=== PATIENT | female | born 1995 | race Caucasian/White ===

== ENCOUNTER 2018-01-13 13:07 | Emergency (ER) | payer OTHER ==
[~2018-01-13] VITALS: Ht 160 cm; Wt 90.0 kg
[2018-01-13 13:15] VITALS: BP 123/86; PULSE 97; RESP 18; TEMP 98.2
[2018-01-13] MEDS ORDERED: SODIUM CHLOR 0.9% 1000 ML INJ 1,000 ML IV ONE ×2 (13:45→14:30)
--- NOTE | 2018-01-13 14:32 | PD ---
HPI . Vomiting and Chief Complaint: Related Problem Time Seen by Provider: 13:37 Travel History International Travel<30 days: No Contact w/Intl Traveler<30days: No Traveled to known affect area: No History of Present Illness HPI This patient presents claiming with hyperemesis. She states that she is 13 weeks . She states that she has had nausea and vomiting every single day with this . She has been seen by her rose grower who has prescribed Zofran. She is reluctant to take Zofran because of bad press. Symptoms are constant for the past couple of months. There have been no exacerbating or relieving factors. Symptoms are moderate. PFSH Past Medical History ?: LMP: 13 weks ago Social History Tobacco Use: No Allergies-Medications (Allergen,Severity, Reaction): Coded Allergies: No Known Allergies (Unverified , 01/13/18) Review of Systems Except as stated in HPI: all other systems reviewed are Neg Physical Exam Narrative GENERAL: Awake and alert and in no acute distress. SKIN: warm/dry. Normal color and turgor. HEAD: Normocephalic. Atraumatic. EYES: Pupils equal and round. No scleral icterus. No injection or drainage. ENT: No nasal bleeding or discharge. Mucous membranes pink and moist. NECK: Trachea midline. Full range of motion without pain.. CARDIOVASCULAR: Regular rate and rhythm. Heart sounds normal. Initial heart rate is 97. RESPIRATORY: No accessory muscle use. Clear to auscultation. Breath sounds equal bilaterally. GASTROINTESTINAL: Abdomen soft. Nontender. Bowel sounds present. Nondistended. MUSCULOSKELETAL: No obvious deformities. NEUROLOGICAL: Awake and alert. No obvious cranial nerve deficits. Motor grossly within normal limits. Normal speech. PSYCHIATRIC: Appropriate mood and affect; insight and judgment normal. Data Data Last Documented VS Vital Signs Date Time Temp Pulse Resp B/P (MAP) Pulse Ox O2 Delivery O2 Flow Rate FiO2 01/13/18 13:15 98.2 97 18 123/86 (98) Orders Orders Sodium Chlor 0.9% 1000 Ml Inj (Ns 1000 M (01/13/18 13:45) Sodium Chlor 0.9% 1000 Ml Inj (Ns 1000 M (01/13/18 14:30) MDM Medical Decision Making Medical Screen Exam Complete: Yes Emergency Medical Condition: Yes Differential Diagnosis Differential diagnosis includes but is not limited to viral gastritis, food poisoning, pancreatitis, pneumonia, hepatitis, acute coronary syndrome, pregnancyDifferential diagnosis includes but is not limited to viral gastritis, food poisoning, pancreatitis, pneumonia, hepatitis, acute coronary syndrome, Narrative Course This patient presents with vomiting associated with . I will treat her with IV fluids. The patient is now urinating. She will be discharged home. Diagnosis Primary Impression: Vomiting affecting Patient Instructions: General Instructions, Nausea and Vomiting in ( ED) Additional Instructions: Take the Zofran as needed to control nausea and vomiting. Disposition: 01 DISCHARGE HOME Condition: Stable America Parks MD Jan 13, 2018 14:32
== END 2018-01-13 16:19 | disposition home or self-care (01) ==
LOC: NEPD 13:07
DX: O21.9 Vomiting of pregnancy, unspecified (principal); Z3A.13 13 weeks gestation of pregnancy
CPT/HCPCS: 99282; J7030

== ENCOUNTER 2018-01-17 00:58 | Emergency (ER) | payer OTHER | END 2018-01-17 01:13 | disposition left against medical advice (07) | LOC: NED 00:58 | DX: O26.891 Other specified pregnancy related conditions, first trimester (principal); R52 Pain, unspecified; O21.9 Vomiting of pregnancy, unspecified; Z3A.13 13 weeks gestation of pregnancy; Z53.21 Procedure and treatment not carried out due to patient leaving prior to being seen by health care provider | CPT/HCPCS: 99281 ==

== ENCOUNTER 2018-09-08 16:08 | Inpatient (IN) ==
[2018-09-08] MEDS: Morphine Inj 4 MG/ML Vial IV.PUSH ONE ×2 (17:28→19:06)
--- NOTE | 2018-09-08 17:28 | XR ---
EXAM DATE: 09/08/2018 4:52 PM EST AGE/SEX: 23 years / Female INDICATIONS: Right ankle pain after fall. CLINICAL DATA: This is the patient's initial encounter. Patient reports that signs and symptoms have been present for 1 day and indicates a pain score of 10/10. MEDICAL/SURGICAL HISTORY: None. None. COMPARISON: No prior exams available for comparison. FINDINGS: There is an oblique fracture at the base of the medial malleolus with minimal displacement at the lev el of the articular surface tear proximally 6 mm of separation at the cortical surface. Moderately comminuted fractures seen of the distal shaft of the right fibula, roughly 8 cm above the ankle joint. There is approximately one third shaft width of lateral displacement. Also mild posterio r angulation deformity. CONCLUSION: Mildly displaced fracture of the medial malleolus. Comminuted and mildly displaced/angulated fracturi ng of the distal shaft of the right fibula. Electronically signed by: Teja Alcantara MD 09/08/2018 5:26 PM EST
--- NOTE | 2018-09-08 17:30 | XR ---
EXAM DATE: 09/08/2018 4:55 PM EST AGE/SEX: 23 years / Female INDICATIONS: Left ankle pain after fall. CLINICAL DATA: This is the patient's initial encounter. Patient reports that signs and symptoms have been present for 1 day and indicates a pain score of 10/10. MEDICAL/SURGICAL HISTORY: None. None. COMPARISON: No prior exams available for comparison. FINDINGS: There is marked anterior and lateral soft tissue swelling. Sliver-like increased density seen just di stal to the tip of the lateral malleolus which may represent a tiny avulsion fracture fragment of the proximal anterior talofibular ligament attachment. No other evidence of fracture. There are no sublu xations. No radiopaque foreign body. CONCLUSION: Anterolateral soft tissue swelling with a possible tiny avulsion fracture fragment off of the tip of the lateral malleolus. No large fracture. No subluxation. Electronically signed by: Teja Alcantara MD 09/08/2018 5:28 PM EST
[2018-09-08 18:50] LABS: Baso % (Auto) 0.4 % (0.0-2.0); Eos # (Auto) 0.2 th/mm3 (0.0-0.4); Eos % (Auto) 1.1 % (0.0-4.0); Hematocrit 35.6 % (35.0-46.0); Hemoglobin 11.2 gm/dL (11.6-15.3); Lymph # (Auto) 2.1 th/mm3 (1.0-4.8); Lymph % (Auto) 16.2 % (9.0-44.0); Mean Corpuscular HGB Conc 31.4 % (32.0-36.0); Mean Corpuscular Hemoglobin 23.4 pg (27.0-34.0); Mean Corpuscular Volume 74.5 fL (80.0-100.0); Mean Platelet Volume 8.6 fL (7.0-11.0); Mono # (Auto) 0.9 th/mm3 (0.0-0.9); Mono % (Auto) 6.6 % (0.0-8.0); Neut # (Auto) 9.9 th/mm3 (1.8-7.7); Neut % (Auto) 75.7 % (16.0-70.0); Platelet Count 229 th/mm3 (150-450); Red Blood Count 4.79 mil/mm3 (4.00-5.30); Red Cell Distribution Width 24.3 % (11.6-17.2); White Blood Count 13.1 th/mm3 (4.0-11.0)
[2018-09-08 19:00] LABS: Calcium 9.2 mg/dL (8.5-10.1); Carbon Dioxide 27.5 meq/L (21.0-32.0)
[2018-09-08] MEDS ORDERED: Morphine Sulfate Inj 2 MG/ML Vial IV.PUSH PRN (19:05)
[2018-09-08] MEDS ORDERED: Bisacodyl 10 MG Supp RECTAL PRN (19:06)
[2018-09-08] MEDS ORDERED: Acetaminophen 325 MG Tablet PO PRN (19:06)
--- NOTE | 2018-09-08 19:07 | P.HPIM ---
History of Present Illness Primary Care Physician: No Primary Care Physician History of Present Illness: This is a 23-year-old female with no significant PMH who was brought to the ER after fall w/ complaints of bilateral ankle pain. Pt states she was at [employer] and was walking up a step w/ her daughter in her arms when, states she missed a step and while trying to protect her daughter, she fell and twisted both ankles. Notes pain is severe, 10/10, worse in right ankle, non-radiating, worse w/ movement. No LOC or head trauma. On arrival, BP 120/63, HR 118, O2 sat 98% on RA, Afebrile. WBC 13.1. Chemistry unremarkable. Left Ankle X-ray with anterolateral soft tissue swelling with tiny avulsion fracture, Right Ankle X-ray with mildly displaced fracture of medial malleolus, comminuted and mildly displaced angulated fracturing of distal shaft of right fibula. S/p splint in ER. Dr. Carvajal consulted, plan is for surgical intervention in am. - Diagnosis (1) Ankle fracture, left (2) Ankle fracture, right Review of Systems PAST FAMILY HISTORY: Reviewed. No h/o DM or CAD All other systems reviewed negative except as stated in HPI PMFSH - History History Provided By: Patient - Medical History Medical History: Medical History (Last Updated 09/08/18 @ 17:34 by eTja Vazquez) Gallstones Gestational diabetes - Tobacco History Second Hand Smoke Exposure: No Tobacco Use In Past 30 Days: No Smoking Status: Never smoker - Alcohol History How Often Do You Have a Drink Containing Alcohol: 2 to 4 times a month - Substance Use History Substance History: No History of Abuse - Travel History Recent Travel in the [facility] Within the Last 8 Weeks: No Recent Travel Out of the Country Within the Last 8 Weeks: No - Immunization History Tetanus Immunization: Unsure Medications and Allergies Allergies Allergy/AdvReac Type Severity Reaction Status Date / Time No Known Allergies Allergy Unverified 01/13/18 13:43 Home Medications Medication Instructions Recorded Confirmed Type No Known Home Medications 09/08/18 09/08/18 History Exam Vital signs: Vital Signs 09/08/18 16:16 09/08/18 17:35 Temperature 97.8 F Pulse Rate 118 H 77 Respiratory Rate 18 18 Blood Pressure 120/63 Pulse Oximetry 98 100 Intake & Output 09/08/18 09/08/18 09/09/18 06:59 18:59 06:59 Weight 90.718 kg Narrative: PE: GENERAL: Very pleasant young female in no acute distress. Family at bedside. SKIN: Focused skin assessment warm and dry. HEENT: PERRLA, EOMI. No scleral icterus or conjunctival pallor. No lid lag or facial droop. CARDIOVASCULAR: Regular rate and rhythm. No obvious murmurs to auscultation. No chest tenderness to palpation. RESPIRATORY: No obvious rhonchi or wheezing. Clear to auscultation. Breath sounds equal bilaterally. GASTROINTESTINAL: Abdomen soft, non-tender, nondistended. BS normal. MUSCULOSKELETAL: Extremities without clubbing, cyanosis, or edema. No obvious deformities. Bilateral lower extremities in splint, decreased ROM NEUROLOGICAL: Awake, alert and oriented x4. No focal neurologic deficits. Moving both upper and lower extremities spontaneously. PSYCHIATRIC: Appropriate mood and affect. Insight and judgment normal. Results - Labs CBC & Chem 7: 09/08/18 18:13 09/08/18 18:13 Labs: Short CBC 09/08/18 Range/Units 18:13 WBC 13.1 H (4.0-11.0) th/mm3 Hgb 11.2 L (11.6-15.3) gm/dL Hct 35.6 (35.0-46.0) % Plt Count 229 (150-450) th/mm3 BMP 09/08/18 18:13 Sodium 140 Potassium 4.0 Chloride 104 Carbon Dioxide 27.5 BUN 14 Creatinine 0.86 Calcium 9.2 - Imaging Impressions Ankle X-Ray 09/08/18 00:00 CONCLUSION: Anterolateral soft tissue swelling with a possible tiny avulsion fracture fragment off of the tip of the lateral malleolus. No large fracture. No subluxation. Ankle X-Ray 09/08/18 00:00 CONCLUSION: Mildly displaced fracture of the medial malleolus. Comminuted and mildly displaced/angulated fracturing of the distal shaft of the right fibula. Caprini VTE Risk Assessment Caprini VTE Risk Assessment: No/Low Risk (score <= 1) Caprini Risk Assessment Model: Point Value = 1 Point Value = 2 Point Value = 3 Point Value = 5 Age 41-60 Minor surgery BMI > 25 kg/m2 Swollen legs Varicose veins or History of unexplained or recurrent spontaneous Oral contraceptives or hormone replacement Sepsis (< 1 month) Serious lung disease, including pneumonia (< 1 month) Abnormal pulmonary function Acute myocardial infarction Congestive heart failure (< 1 month) History of inflammatory bowel disease Medical patient at bed rest Age 61-74 Arthroscopic surgery Major open surgery (> 45 min) Laparoscopic surgery (> 45 min) Malignancy Confined to bed (> 72 hours) Immobilizing plaster cast Central venous access Age >= 75 History of VTE Family history of VTE Factor V Leiden Prothrombin [id number] Lupus anticoagulant Anticardiolipin antibodies Elevated serum homocysteine Heparin-induced thrombocytopenia Other congenital or acquired thrombophilia Stroke (< 1 month) Elective arthroplasty Hip, pelvis, or leg fracture Acute spinal cord injury (< 1 month) Prophylaxis Regimen: Total Risk Factor Score Risk Level Prophylaxis Regimen 0-1 Low Early ambulation 2 Moderate Order ONE of the following: *Sequential Compression Device (SCD) *Heparin 5000 units SQ BID 3-4 Higher Order ONE of the following medications: *Heparin 5000 units SQ TID *Enoxaparin/Lovenox 40 mg SQ daily (WT < 150 kg, CrCl > 30 mL/min) *Enoxaparin/Lovenox 30 mg SQ daily (WT < 150 kg, CrCl > 10-29 mL/min) *Enoxaparin/Lovenox 30 mg SQ BID (WT < 150 kg, CrCl > 30 mL/min) AND/OR *Sequential Compression Device (SCD) 5 or more Highest Order ONE of the following medications: *Heparin 5000 units SQ TID (Preferred with Epidurals) *Enoxaparin/Lovenox 40 mg SQ daily (WT < 150 kg, CrCl > 30 mL/min) *Enoxaparin/Lovenox 30 mg SQ daily (WT < 150 kg, CrCl > 10-29 mL/min) *Enoxaparin/Lovenox 30 mg SQ BID (WT < 150 kg, CrCl > 30 mL/min) AND *Sequential Compression Device (SCD) Assessment and Plan - Assessment (1) Ankle fracture, left Code(s): S82.892A - Other fracture of left lower leg, initial encounter for closed fracture Status: Acute (2) Ankle fracture, right Code(s): S82.891A - Other fracture of right lower leg, initial encounter for closed fracture Status: Acute - Plan A/P: 1. Bilateral Ankle Fx: s/p fall, Right Ankle X-ray w/ mildly displaced fracture medial malleolus, comminuted/mildly displaced/angulated fracture of distal shaft of right fibula, Left Ankle X-ray w/ possible tiny avulsion fracture lateral malleolus, images reviewed. S/p splint in ER. Dr. Carvajal consulted, plan is for surgical intervention in am. NPO after midnight. Morphine w/ no relief, will switch to Dilaudid IV prn. Pre-op labs reviewed, no significant abnormalities. 2. DVT Prophylaxis: Anticoagulation post op 3. Social work for d/c planning as needed 4. Case discussed w/ ER physician at length, labs/records/imaging reviewed by me.
[2018-09-08] MEDS ORDERED: HYDROmorphone PF Inj 0.5 MG/0.5 ML Syringe SQ ONE (19:10)
[2018-09-08] MEDS ORDERED: HYDROmorphone PF Inj 1 MG/ML Ampul SQ ONE (19:30)
--- NOTE | 2018-09-08 19:36 | ED ---
HPI General Chief Complaint: Extremity Injury, Lower Stated Complaint: R ankle Time Seen by Provider: 09/08/18 16:49 Source: patient and family Mode of arrival: wheelchair Limitations: no limitations History of Present Illness HPI Narrative: 23-year-old female that presents to the ED for evaluation of fall and injury to both ankles. Per patient she was at [employer] with her daughter and apparently there was long step that they missed and will trying to protect her daughter who was also falling she twisted both of her ankles. Per patient most of the pain is to the right ankle where she cannot put any weight on it. Per patient she does have pain on the left ankle and can put some weight on it but she still has a little discomfort. She is mostly concerned about the right but also the left. Denies hitting her head or losing consciousness. No previous injuries. No urinary bowel movement issues. No numbness, drooling, weakness. Pain per patient is 10 out of 10. Has not seen anybody for this. Injury occurred an hour and a half before coming here. Has no orthopedic doctor. History of asthma. Takes no medications. No . Related Data Home Medications Medication Instructions Recorded Confirmed No Known Home Medications 09/08/18 09/08/18 Allergies Allergy/AdvReac Type Severity Reaction Status Date / Time No Known Allergies Allergy Unverified 01/13/18 13:43 Review of Systems ROS: all other systems reviewed are negative [facility] Medical History Medical History Gallstones (Acute) Gestational diabetes (Acute) Social History Social History Substance History: No History of Abuse Second Hand Smoke Exposure: No Smoking Status: Never smoker How Often Do You Have a Drink Containing Alcohol: 2 to 4 times a month Recent Travel in [facility] within the Last 8 Weeks: No Recent Out of Country Travel within the Last 8 Weeks: No Immunization History Tetanus Immunization: Unsure Exam Narrative Exam Narrative: GENERAL: Well appearing SKIN: Focused skin assessment warm/dry. HEAD: Atraumatic. Normocephalic. EYES: Pupils equal and round. No scleral icterus. No injection or drainage. ENT: No nasal bleeding or discharge. Mucous membranes pink and moist. Tongue is midline. No uvula deviation. NECK: Trachea midline. No JVD. CARDIOVASCULAR: Regular rate and rhythm. No murmur appreciated. RESPIRATORY: No accessory muscle use. Clear to auscultation. Breath sounds equal bilaterally. GASTROINTESTINAL: Abdomen soft, non-tender, nondistended. Hepatic and splenic margins not palpable. MUSCULOSKELETAL: No obvious deformities. No clubbing. No cyanosis. No edema. Full range of motion of the upper and lower extremities bilaterally with exception of the right ankle and left ankle where patient has obvious swelling and deformity to the malleolus bilaterally more noticeable on the right than the left. On the right patient has obvious deformity to the medial malleolus and a little swelling on the lateral aspect of it. On the left patient has a lot of pain and swelling noted on the left ankle on the lateral malleolus. 2+ pulses bilaterally. Sensation is intact bilaterally. NEUROLOGICAL: Awake and alert. No obvious cranial nerve deficits. Motor grossly within normal limits. Normal speech. PSYCHIATRIC: Appropriate mood and affect; insight and judgment normal. Course Initial Documented Vital Signs Temperature 97.8 F 09/08/18 16:16 Pulse Rate 118 H 09/08/18 16:16 Respiratory Rate 18 09/08/18 16:16 Pulse Oximetry 98 09/08/18 16:16 Last Documented Vital Signs Temperature 97.8 F 09/08/18 16:16 Pulse Rate 77 09/08/18 17:35 Respiratory Rate 18 09/08/18 17:35 Blood Pressure 120/63 09/08/18 17:35 Pulse Oximetry 100 09/08/18 17:35 Medical Decision Making MDM Narrative Medical decision making narrative: 23-year-old female that presents to the ED for evaluation of bilateral ankle injury. Patient was properly examined and was found to have signs and symptoms consistent with appears to be possible fractures. X-rays were done and were positive for fracture on the right and left ankle. More significant on the right. I spoke with Dr. Paul over the phone who recommends admission to medicine and n.p.o. after midnight for likely surgery on the right. Likely no surgical intervention for the left and patient can be put on a walking boot. My attending Dr. Morse [facility] who [facility] the splinting. My attending Dr. Morse also spoke with the patient as well as the admitting physician Dr. Gunderson agrees admission to her service. Medical Screen Exam Complete: Yes Emergency Medical Condition: Yes Differential Diagnosis Differential Diagnosis: Fracture versus sprain versus strain versus bruise versus contusion Medical Records Medical records reviewed: Yes I reviewed the patient's medical records. Lab Data Lab results reviewed: Yes I reviewed the patient's lab results. Result diagrams: 09/08/18 18:13 09/08/18 18:13 Lab Results 09/08/18 09/08/18 Range/Units 18:13 18:13 WBC 13.1 H (4.0-11.0) th/mm3 RBC 4.79 (4.00-5.30) mil/mm3 Hgb 11.2 L (11.6-15.3) gm/dL Hct 35.6 (35.0-46.0) % MCV 74.5 L (80.0-100.0) fL MCH 23.4 L (27.0-34.0) pg MCHC 31.4 L (32.0-36.0) % RDW 24.3 H (11.6-17.2) % Plt Count 229 (150-450) th/mm3 MPV 8.6 (7.0-11.0) fL Neut % (Auto) 75.7 H (16.0-70.0) % Lymph % (Auto) 16.2 (9.0-44.0) % Traverse % (Auto) 6.6 (0.0-8.0) % Eos % (Auto) 1.1 (0.0-4.0) % Baso % (Auto) 0.4 (0.0-2.0) % Neut # (Auto) 9.9 H (1.8-7.7) th/mm3 Lymph # (Auto) 2.1 (1.0-4.8) th/mm3 Traverse # (Auto) 0.9 (0.0-0.9) th/mm3 Eos # (Auto) 0.2 (0.0-0.4) th/mm3 Baso # (Auto) 0.0 (0.0-0.2) th/mm3 WBC Differential . Differential Comment Auto diff final Sodium 140 (136-145) meq/L Potassium 4.0 (3.5-5.1) meq/L Chloride 104 (98-107) meq/L Carbon Dioxide 27.5 (21.0-32.0) meq/L Anion Gap 9 (5-15) meq/L BUN 14 (7-18) mg/dL Creatinine 0.86 (0.50-1.00) mg/dL Estimated GFR 83 L (>89) mL/min Random Glucose 113 H (74-106) mg/dL Calcium 9.2 (8.5-10.1) mg/dL Imaging Data Attestation: I personally reviewed and interpreted this imaging study as follows : Radiologist's impression: Ankle X-Ray 09/08/18 00:00 CONCLUSION: Anterolateral soft tissue swelling with a possible tiny avulsion fracture fragment off of the tip of the lateral malleolus. No large fracture. No subluxation. Ankle X-Ray 09/08/18 00:00 CONCLUSION: Mildly displaced fracture of the medial malleolus. Comminuted and mildly displaced/angulated fracturing of the distal shaft of the right fibula. Discharge Plan Discharge Disposition Patient Disposition: 30 Still Patient Discharge Details Diagnosis: Ankle fracture, Avulsion fracture Physicians Team ED Provider: Irma Morse ED Midlevel Provider: Mateo Glez Primary Care Provider: Primary Care Amy Hernandez Attending Provider: Sangeetha Gunderson Discharge Interventions Interventions: Vital Signs Last Done: 09/08/18 17:35 Status ED Status: Admitted Patient
[2018-09-08] MEDS: HYDROmorphone PF Inj 1 MG/ML Ampul IV.PUSH PRN ×2 (19:45→23:43)
[2018-09-08 19:48] LABS: Activated Partial Thrombo Time 29.2 sec (23.4-31.7); INR 1.1 Ratio; Prothrombin Time 10.9 sec (9.8-11.6)
[2018-09-08] MEDS ORDERED: Chlorhexidine Gluconate 2% 1 Pack (2 Cloths) TOPICAL SCH (21:32)
[2018-09-08] MEDS ORDERED: Metoprolol Tartrate 25 MG Tablet PO SCH (21:32)
[2018-09-08] MEDS ORDERED: Sodium Chlor 0.9% Inj 500 ML IV.SIG SCH (22:00)
[2018-09-09] MEDS: HYDROmorphone PF Inj 1 MG/ML Ampul IV.PUSH PRN ×3 (03:55→21:49)
[2018-09-09] MEDS: Senna/Docusate Sodium 8.6/50 MG Tablet PO SCH ×3 (04:25→23:14)
[2018-09-09 06:15] LABS: Baso % (Auto) 0.3 % (0.0-2.0); Eos # (Auto) 0.3 th/mm3 (0.0-0.4); Eos % (Auto) 3.1 % (0.0-4.0); Hematocrit 32.7 % (35.0-46.0); Hemoglobin 10.6 gm/dL (11.6-15.3); Lymph # (Auto) 3.2 th/mm3 (1.0-4.8); Lymph % (Auto) 32.8 % (9.0-44.0); Mean Corpuscular HGB Conc 32.4 % (32.0-36.0); Mean Corpuscular Hemoglobin 24.2 pg (27.0-34.0); Mean Corpuscular Volume 74.7 fL (80.0-100.0); Mean Platelet Volume 8.5 fL (7.0-11.0); Mono # (Auto) 0.9 th/mm3 (0.0-0.9); Mono % (Auto) 9.2 % (0.0-8.0); Neut # (Auto) 5.4 th/mm3 (1.8-7.7); Neut % (Auto) 54.6 % (16.0-70.0); Platelet Count 208 th/mm3 (150-450); Red Blood Count 4.37 mil/mm3 (4.00-5.30); Red Cell Distribution Width 24.4 % (11.6-17.2); White Blood Count 9.8 th/mm3 (4.0-11.0)
[2018-09-09 06:44] LABS: Albumin 3.5 g/dL (3.4-5.0); Anion Gap 8 meq/L (5-15); Aspartate Aminotransferase 19 U/L (15-37); Blood Urea Nitrogen 11 mg/dL (7-18); Calcium 8.5 mg/dL (8.5-10.1); Carbon Dioxide 26.8 meq/L (21.0-32.0); Chloride 107 meq/L (98-107); Glomerular Filtration Rate Greater Than 89 mL/min (>89); Glucose,Random 89 mg/dL (74-106); Sodium 142 meq/L (136-145)
[2018-09-09 06:46] LABS: Alanine Aminotransferase 32 U/L (10-53)
[2018-09-09 06:47] LABS: Alkaline Phosphatase 79 U/L (45-117); Total Protein 7.4 g/dL (6.4-8.2)
--- NOTE | 2018-09-09 06:47 | P.CONOP ---
[facility] - [facility] Consult date: 09/09/18 Consult reason: fracture Chief complaint: Ankle fractures Narrative: 23-year-old female with no significant PMH who was brought to the ER after fall w/ complaints of bilateral ankle pain. Pt states she was at [employer] and was walking up a step w/ her daughter in her arms when, states she missed a step and while trying to protect her daughter, she fell and twisted both ankles. Notes pain is severe, 10/10, worse in right ankle, non-radiating, worse w/ movement. No LOC or head trauma. Review of Systems Denies fevers, chills, nausea, vomiting. Denies chest pain, cough, shortness of breath. Denies abdominal pain, change in urination. Denies dizziness blurry vision. Denies back pain, weakness, numbness or tingling. Reports bilateral ankle pain, right greater than left PMFSH - History History Provided By: Patient - Medical History Medical History: Medical History (Last Reviewed 09/08/18 @ 19:31 by ANAMARIA Morgan) Gallstones Gestational diabetes - Tobacco History Second Hand Smoke Exposure: No Tobacco Use In Past 30 Days: No Smoking Status: Never smoker - Alcohol History How Often Do You Have a Drink Containing Alcohol: 2 to 4 times a month - Substance Use History Substance History: No History of Abuse - Travel History Recent Travel in the [place] Within the Last 8 Weeks: No Recent Travel Out of the Country Within the Last 8 Weeks: No - Immunization History Tetanus Immunization: Unsure Hx Influenza Vaccine This Season: No Medications and Allergies Active Medications: Active Medications Acetaminophen (Tylenol) 650 mg PO Q4H PRN PRN Reason: Temp > 100.4 Hydrocodone Bitart/Acetaminophen ([place] 5/325) 1 tab PO Q4H PRN PRN Reason: PAIN 3-5 Last Admin: 09/09/18 06:21 Dose: 1 tab Al Hydroxide/Mg Hydroxide (Milk Of Magnesia Liq) 30 ml PO Q12H PRN PRN Reason: Mild Constipation Bisacodyl (Dulcolax Supp) 10 mg RECTAL DAILY PRN PRN Reason: SEVERE CONSITIPATION Chlorhexidine Gluconate (Chlorhexidine 2% Cloth) 3 pack TOPICAL [employer]FRASTRU[employer]URE ARCHITECT [facility] Stop: 09/09/18 21:31 Hydromorphone HCl (Dilaudid Pf Inj) 1 mg IV.PUSH Q4H PRN PRN Reason: PAIN 6-10 Last Admin: 09/09/18 03:55 Dose: 1 mg Sodium Chloride (Ns Inj) 1,000 mls @ 100 mls/hr IV.CONT .Q10H [facility] Last Admin: 09/09/18 00:00 Dose: 100 mls/hr Lactated Ringer's (Lr 1000 Ml Inj) 1,000 mls @ 30 mls/hr IV.SIG .Q24H [facility] Sodium Chloride (Ns Inj) 500 mls @ 30 mls/hr IV.SIG .Q10H [facility] Lactulose (Lactulose Liq) 30 ml PO DAILY PRN PRN Reason: SEVERE CONSITIPATION Metoclopramide HCl (Reglan Inj) 5 mg IV.PUSH Q6HR PRN; Protocol PRN Reason: NAUSEA OR VOMITING Metoprolol Tartrate (Lopressor) 25 mg PO [employer]FRASTRU[employer]URE [employer]CHIT[employer] [facility] Stop: 09/09/18 21:31 Povidone Iodine (Betadine 5% Antisepsis Kit) 1 applicatio EACH NARE [employer]FRASTRUCTURE ARCHITECT [facility] Stop: 09/09/18 21:31 Senna/Docusate Sodium (Sylvie-Colace) 1 tab PO BID [facility] Last Admin: 09/09/18 04:25 Dose: Not Given Sennosides (Senokot) 17.2 mg PO Q12H PRN PRN Reason: Moderate Constipation Allergies Allergy/AdvReac Type Severity Reaction Status Date / Time No Known Allergies Allergy Unverified 01/13/18 13:43 Home Medications Medication Instructions Recorded Confirmed Type No Known Home Medications 09/08/18 09/08/18 History Exam Vital signs: Vital Signs 09/08/18 16:16 09/08/18 17:35 09/08/18 19:31 Temperature 97.8 F Pulse Rate 118 H 77 Respiratory Rate 18 18 18 Blood Pressure 120/63 Pulse Oximetry 98 100 09/08/18 19:45 09/08/18 20:00 09/09/18 00:00 Temperature 97.2 F L 97.7 F Pulse Rate 85 85 77 Respiratory Rate 18 19 19 Blood Pressure 118/69 125/67 108/65 Pulse Oximetry 100 99 100 09/09/18 01:30 09/09/18 04:00 Temperature 97.9 F Pulse Rate 86 Respiratory Rate 17 18 Blood Pressure 96/52 L Pulse Oximetry 100 Intake & Output 11/10/18 11/10/18 11/11/18 06:59 18:59 06:59 Output Total 5 / 1125 Balance -1124 / -112 Weight 90.718 kg 84.7 kg Output: Urine Amount (Catheter) 1124 Indwelling Urethral Catheter 1124 Other: Date of Last Bowel Movement 09/07/18 Weight On Admission 90.718 kg Narrative: Awake, alert, no acute distress Normocephalic Pupils equal No JVD Moist mucous members Soft nontender abdomen Regular rate Nonlabored respirations Bilateral lower extremities: Splint in place over bilateral ankles. Patient is able to wiggle toes although with significant discomfort on the right side. Sensation appears grossly intact distally. Brisk cap refill. Bilateral upper extremities: No visible deformities or significant tenderness palpation. Full active range of motion and strength throughout. Sensation intact. Radial pulses are palpable. No rash Normal affect Results - Labs Result Diagrams: 09/09/18 04:59 09/08/18 18:13 Labs: Laboratory Results - last 24 hr 09/08/18 09/08/18 09/08/18 18:13 18:13 19:00 WBC 13.1 H RBC 4.79 Hgb 11.2 L Hct 35.6 MCV 74.5 L MCH 23.4 L MCHC 31.4 L RDW 24.3 H Plt Count 229 MPV 8.6 Prelim Diff (Auto) Neut % (Auto) 75.7 H Lymph % (Auto) 16.2 [place] % (Auto) 6.6 Eos % (Auto) 1.1 Baso % (Auto) 0.4 Neut # (Auto) 9.9 H Lymph # (Auto) 2.1 [place] # (Auto) 0.9 Eos # (Auto) 0.2 Baso # (Auto) 0.0 WBC Differential . Differential Comment Auto diff final PT 10.9 INR 1.1 APTT 29.2 Sodium 140 Potassium 4.0 Chloride 104 Carbon Dioxide 27.5 Anion Gap 9 BUN 14 Creatinine 0.86 Estimated GFR 83 L Random Glucose 113 H Calcium 9.2 09/09/18 04:59 WBC 9.8 RBC 4.37 Hgb 10.6 L Hct 32.7 L MCV 74.7 L MCH 24.2 L MCHC 32.4 RDW 24.4 H Plt Count 208 MPV 8.5 Prelim Diff (Auto) Slide review pending Neut % (Auto) 54.6 Lymph % (Auto) 32.8 [place] % (Auto) 9.2 H Eos % (Auto) 3.1 Baso % (Auto) 0.3 Neut # (Auto) 5.4 Lymph # (Auto) 3.2 [place] # (Auto) 0.9 Eos # (Auto) 0.3 Baso # (Auto) 0.0 WBC Differential Differential Comment . PT INR APTT Sodium Potassium Chloride Carbon Dioxide Anion Gap BUN Creatinine Estimated GFR Random Glucose Calcium - Diagnostic results Imaging: Impressions Ankle X-Ray 09/08/18 00:00 CONCLUSION: Anterolateral soft tissue swelling with a possible tiny avulsion fracture fragment off of the tip of the lateral malleolus. No large fracture. No subluxation. Ankle X-Ray 09/08/18 00:00 CONCLUSION: Mildly displaced fracture of the medial malleolus. Comminuted and mildly displaced/angulated fracturing of the distal shaft of the right fibula. Assessment and Plan - Assessment and Plan 23-year-old female with closed right unstable bimalleolar ankle fracture and left ankle sprain Radiographs reviewed by myself and with the patient. She does have what appears to be a small avulsion off the lateral malleolus on the left side consistent with ankle sprain. At this time I would recommend placing the patient into a tall walking boot and allow her to be weightbearing as tolerated on the left ankle. In regards to her right ankle, I have recommended operative intervention given the displacement and unstable nature of her fracture. I explained to the patient that with nonoperative management she would be at risk for persistent ankle pain, instability and early onset arthritis. Surgery in the form of open reduction internal fixation of her right ankle fracture. Risks of surgery including but not limited to: Infection, nonunion or malunion, hardware malposition or failure, neurovascular injury, persistent ankle pain and/or stiffness, possible need for further surgery, and other unforeseen comp occasions were all discussed with the patient. At this time she has consented to the above-mentioned procedure. Patient is n.p.o. since midnight for plan for surgery this morning. Postoperative course was discussed with the patient. She will likely be nonweightbearing for at least 6-8 weeks. She will be allowed to weight-bear on the left side in the boot.
[2018-09-09] MEDS ORDERED: Succinylcholine Inj 100 MG/5 ML Syringe IV.PUSH ONE (07:47)
[2018-09-09] MEDS ORDERED: Sodium Chlor 0.9% Inj 250 ML IV.CONT ONE (07:47)
[2018-09-09] MEDS ORDERED: Lidocaine PF 1% Inj 5 ML Syringe OTHER ONE (07:47)
[2018-09-09 07:50] LABS: Tear Drop Cells 1+
[2018-09-09] MEDS ORDERED: ceFAZolin 2 GM Premix Inj 2 GM/50 ML PIGGYBACK IV.SIG ONE (07:51)
[2018-09-09] MEDS: Sod Chloride 0.9% Inj 1,000 ML IV.CONT SCH ×3 (08:20→15:31)
[2018-09-09] MEDS ORDERED: Bupivacaine/Epinephrine PF Inj 0.5% 10 ML Vial ONE (08:47)
[2018-09-09] MEDS ORDERED: Bupivacaine/Epinephrine 0.5% Inj 50 ML Vial ONE (08:50)
[2018-09-09] MEDS ORDERED: Post-op Orders (for Pharmacy) OTHER STA (09:17)
--- NOTE | 2018-09-09 09:17 | P.OP ---
Date of procedure: 09/09/18 Procedure: 1. Open reduction internal fixation of right bimalleolar ankle fracture 2. Open reduction internal fixation right syndesmotic injury Implants: Synthes Anesthesia: GETA Surgeon: Sophia Carvajal MD Relaster: Gregorio Santizo Estimated blood loss (mL): 25 Pathology: none sent Operation and Findings: Indications for procedure: 23-year-old female who sustained bilateral ankle injuries. Patient was found to have a left ankle sprain and a closed right bimalleolar displaced ankle fracture. Options of management were discussed with the patient. Risks, benefits, alternatives were discussed. At this time she is consented to the above-mentioned procedure. Relaster: Gregorio Santizo PA-C The surgical procedure was assisted by physician porcelain buildup assistant. My P.A. presence was necessary throughout this case for the manipulation and positioning of the surgical extremity. My P.A. was assisting me throughout the duration of this procedure. The skill set of a physician porcelain buildup assistant was medically necessary to complete this procedure. During the surgical case the ocular care technician was working at the back table and the physician porcelain buildup assistant was directly assisting me. Description of procedure: Patient was brought back to the operating room and placed supine on operating table with all bony promises well-padded. General anesthesia then ensued. A tourniquet was placed on the patient's right thigh and patient's right leg was prepped and draped in standard sterile fashion. Preoperative antibiotics were given within 1 hour of incision. A timeout was performed to down by the correct patient, side, site and procedure to be performed. The leg was exsanguinated and tourniquet inflated to 250 mmHg. A lateral incision was made over the distal aspect of the fibula with sharp dissection through the skin and subcutaneous tissue. Careful dissection was made proximally to protect the traversing nerve. The fracture site was exposed and cleaned and reduced under direct visualization and verified on AP and lateral radiographs. The fibula was found to be out to length and a one third tubular plate was placed and fixed both proximally and distally with nonlocking cortical screws. A medial incision was then made over the distal tibia with sharp dissection through the skin and subcutaneous tissue. Immediately the medial malleolus fracture was identified and found to be relatively transverse and oblique. At this time the fracture was freed of soft tissue and appropriately reduced under direct visualization and verified on AP and lateral radiographs. This was held reduced with a dental pick and 2 K wires for 4.0 mm cannulated screws within placed from distally to proximally past the fracture site and into the distal tibia. These were subsequently measured, the near cortex drilled and appropriate length cannulated screws placed over these guidewires. The medial malleolus fracture was found to be well reduced at the joint surface and hardware appropriately placed out of the joint. At this time, and external rotation stress test was then performed. There is significant syndesmotic widening. A clamp was placed just proximal to the tibiotalar joint. This held the syndesmosis appropriately reduced on AP and lateral radiographs. A syndesmotic screw was then placed from lateral to medial parallel to the tibiotalar joint. Another external rotation stress test was again performed which demonstrated no evidence of syndesmotic widening or medial clear space widening. At this time the joint appeared appropriately reduced and hardware in good position. All wounds were thoroughly irrigated with normal saline laden with gentamicin. The deep tissue was closed with Vicryl sutures and the skin closed with nylon. Local anesthetic of half percent Marcaine with epinephrine was utilized. Sterile dressings were then applied along with a short leg splint. The tourniquet was released. Patient was awoken from general anesthesia without comp occasion. Disposition: Nonweightbearing right lower extremity in splint. Weightbearing as tolerated to the left lower extremity in a tall walking boot.
[2018-09-09] MEDS ORDERED: fentaNYL Citrate Inj 100 MCG/2 ML Ampul ONE (09:38)
[2018-09-09] MEDS ORDERED: *morphine SULFATE 10 MG/ML PERIprocedure ONLY ONE ×2 (09:40→09:52)
--- NOTE | 2018-09-09 15:03 | XR ---
EXAM DATE: 09/09/2018 3:00 PM EST AGE/SEX: 23 years / Female INDICATIONS: ORIF right ankle. CLINICAL DATA: This is the patient's initial encounter. Patient reports that signs and symptoms have been present for 1 day and indicates a pain score of Nonresponsive. MEDICAL/SURGICAL HISTORY: Non-responsive. Non-responsive. [place] [facility] [place] 3[place]/08/[place]. . FINDINGS: There is plate and screw fixation of the lateral malleolus and lack screw fixation of the medial mall eolus. Normal alignment of the ankle joint. CONCLUSION: Bimalleolar fixation as above. Electronically signed by: August Dietz MD 09/09/2018 3:02 PM EST
[2018-09-09] MEDS: ceFAZolin 1 GM Premix Inj 1 GM/50 ML FROZ.PIGGY IV.SIG SCH (15:23)
--- NOTE | 2018-09-09 15:59 | P.PNIM ---
Subjective Interval history: Follow-up visit bilateral ankle fracture, status post ORIF of right bimalleolar ankle fracture. Patient seen and examined today. Reports she is doing okay. States that she has no other medical issues or history. States that she has support her at home were in her mother will be taking care of her 2 kids at home and other family members will take turn too. Not . Pain is manageable. Denies SOB/ dyspnea. Denies chest pain, palpitations, headaches, dizziness. Denies fevers, chills, n/v/d. Denies dysuria. Physical Exam Vital signs: Vital Signs 09/08/18 16:16 09/08/18 17:35 09/08/18 19:31 Temperature 97.8 F Pulse Rate 118 H 77 Respiratory Rate 18 18 18 Blood Pressure 120/63 Pulse Oximetry 98 100 09/08/18 19:45 09/08/18 20:00 09/09/18 00:00 Temperature 97.2 F L 97.7 F Pulse Rate 85 85 77 Respiratory Rate 18 19 19 Blood Pressure 118/69 125/67 108/65 Pulse Oximetry 100 99 100 09/09/18 01:30 09/09/18 04:00 09/09/18 08:00 Temperature 97.9 F 97.8 F Pulse Rate 86 84 Respiratory Rate 17 18 16 Blood Pressure 96/52 L 132/69 Pulse Oximetry 100 94 L 09/09/18 09:30 09/09/18 09:45 09/09/18 10:00 Temperature 98.1 F 98.1 F Pulse Rate 97 H 78 82 Respiratory Rate 16 17 18 Blood Pressure 130/86 118/58 L 120/63 Pulse Oximetry 100 95 99 09/09/18 12:00 Temperature 97.3 F L Pulse Rate 72 Respiratory Rate 16 Blood Pressure 112/60 Pulse Oximetry 95 Intake & Output 09/08/18 09/09/18 09/09/18 18:59 06:59 18:59 Intake Total 1999 Output Total 1125 / 1125 325 / 325 Balance -1125 / -1125 1675 / 1675 Weight 90.718 kg 84.7 kg Intake: IV 1000 / 1000 NS Inj 1,000 ML @ 100 mls/hr IV 1000 / 1000 .CONT .Q10H [facility] Rx#:[id number] Anesthesia Amount 1000 / 1000 Output: Estimated Blood Loss 25 / 25 Urine Amount (Catheter) 1124 300 / 300 Indwelling Urethral Catheter 1124 300 / 300 Other: Date of Last Bowel Movement 09/07/18 09/07/18 Weight On Admission 90.718 kg Narrative: GENERAL: This is a well-nourished, well-developed patient, in no apparent distress. SKIN: Warm and dry. HEENT: Normocephalic. Pupils equal round and reactive. Nose without bleeding. Airway patent. NECK: Trachea midline. CARDIOVASCULAR: Regular rate and rhythm without murmurs, gallops, or rubs. RESPIRATORY: Clear to auscultation. Breath sounds equal bilaterally. No wheezes , rales, or rhonchi. GASTROINTESTINAL: Abdomen soft, non-tender, nondistended. Bowel Sounds normoactive x4. MUSCULOSKELETAL: Extremities without clubbing, cyanosis. LLE Splint acewrap, able to wiggle toes. Warm and dry. Right lower extremity with Herrera wrap, able to wiggle toes, warm and dry. Sensation for bilateral lower extremity is intact. NEUROLOGICAL: Awake and alert. Oriented to time, place, person. No focal neuro deficit. Normal speech. - Urinary Catheter Management Indwelling Urethral Catheter Cath placed during this visit: yes Reason for continuing: Hourly intake/output Insertion date: 09/08/18 Insertion time: 21:30 Results - Labs CBC & Chem 7: 09/09/18 04:59 09/09/18 04:59 Laboratory Results - last 24 hr 09/08/18 09/08/18 09/08/18 18:13 18:13 19:00 WBC 13.1 H RBC 4.79 Hgb 11.2 L Hct 35.6 MCV 74.5 L MCH 23.4 L MCHC 31.4 L RDW 24.3 H Plt Count 229 MPV 8.6 Prelim Diff (Auto) Neut % (Auto) 75.7 H Lymph % (Auto) 16.2 [place] % (Auto) 6.6 Eos % (Auto) 1.1 Baso % (Auto) 0.4 Neut # (Auto) 9.9 H Lymph # (Auto) 2.1 [place] # (Auto) 0.9 Eos # (Auto) 0.2 Baso # (Auto) 0.0 WBC Differential . Diff Scan Differential Comment Auto diff final Tear Drop Cells PT 10.9 INR 1.1 APTT 29.2 Sodium 140 Potassium 4.0 Chloride 104 Carbon Dioxide 27.5 Anion Gap 9 BUN 14 Creatinine 0.86 Estimated GFR 83 L Random Glucose 113 H Calcium 9.2 Total Bilirubin AST ALT Alkaline Phosphatase Total Protein Albumin 09/09/18 09/09/18 04:59 04:59 WBC 9.8 RBC 4.37 Hgb 10.6 L Hct 32.7 L MCV 74.7 L MCH 24.2 L MCHC 32.4 RDW 24.4 H Plt Count 208 MPV 8.5 Prelim Diff (Auto) Slide review pending Neut % (Auto) 54.6 Lymph % (Auto) 32.8 [place] % (Auto) 9.2 H Eos % (Auto) 3.1 Baso % (Auto) 0.3 Neut # (Auto) 5.4 Lymph # (Auto) 3.2 [place] # (Auto) 0.9 Eos # (Auto) 0.3 Baso # (Auto) 0.0 WBC Differential . Diff Scan Auto diff confirmed Differential Comment . Tear Drop Cells 1+ H PT INR APTT Sodium 142 Potassium 4.0 Chloride 107 Carbon Dioxide 26.8 Anion Gap 8 BUN 11 Creatinine 0.80 Estimated GFR Greater than 89 Random Glucose 89 Calcium 8.5 Total Bilirubin 0.3 AST 19 ALT 32 Alkaline Phosphatase 79 Total Protein 7.4 Albumin 3.5 - Imaging Impressions Ankle X-Ray 09/08/18 00:00 CONCLUSION: Anterolateral soft tissue swelling with a possible tiny avulsion fracture fragment off of the tip of the lateral malleolus. No large fracture. No subluxation. Ankle X-Ray 09/08/18 00:00 CONCLUSION: Mildly displaced fracture of the medial malleolus. Comminuted and mildly displaced/angulated fracturing of the distal shaft of the right fibula. Ankle X-Ray 09/09/18 00:00 CONCLUSION: Bimalleolar fixation as above. Assessment and Plan - Assessment (1) Ankle fracture, left Code(s): S82.892A - Other fracture of left lower leg, initial encounter for closed fracture Status: Acute (2) Ankle fracture, right Code(s): S82.891A - Other fracture of right lower leg, initial encounter for closed fracture Status: Acute - Plan 23-year-old female with no significant PMH who was brought to the ER after fall w/ complaints of bilateral ankle pain status post fall Status post right bimalleolar ORIF, Dr. Carvajal 09/09/18 Bilateral ankle fracture -Right Ankle X-ray w/ mildly displaced fracture medial malleolus, comminuted/ mildly displaced/angulated fracture of distal shaft of right fibula -Left Ankle X-ray w/ possible tiny avulsion fracture lateral malleolus - Splint boot, weightbearing as tolerated -Nonweightbearing to right lower extremity as per orthopedic surgeon. -Physical therapy eval and treat -Pain management by [place], IV Dilaudid for breakthrough pain. Bowel regimen -Plan for home health care therapy on discharge History of iron deficiency anemia -Iron supplement DVT prop Lovenox cleared by surgeon Code Status: Full code Discussed Condition With: Patient, nurse Discharge Planning: DC disposition by primary team
--- NOTE | 2018-09-09 16:34 | P.DCO ---
- Physical Therapy Order: Evaluate and treat - Home Health Nursing Order: Medication education-adverse effect, Wound care and dressing changes - Case Management Consult Yes - Certification I have seen patient Dayana Hodgson on 09/09/18. My clinical findings support the need for the requested home health care services because: Limited mobility due to disease progression, Deconditioned with increased weakness, Limited ability to care for self I certify that my clinical findings support that this patient is homebound because: Post-op weakness, Non-ambulatory: confined to bed or chair
[2018-09-09] MEDS ORDERED: Enoxaparin Inj 40 MG/0.4 ML Syringe SQ SCH (17:00)
[2018-09-10] MEDS: ceFAZolin 1 GM Premix Inj 1 GM/50 ML FROZ.PIGGY IV.SIG SCH ×2 (00:32→08:06)
[2018-09-10] MEDS: HYDROmorphone PF Inj 1 MG/ML Ampul IV.PUSH PRN ×2 (02:52→10:38)
--- NOTE | 2018-09-10 06:45 | P.PNOP ---
Subjective Interval history: Patient resting comfortably. Reports pain relatively well controlled at rest. States she has not been out of bed yet. Physical Exam Vital signs: Vital Signs 09/09/18 08:00 09/09/18 09:30 09/09/18 09:45 Temperature 97.8 F 98.1 F Pulse Rate 84 97 H 78 Respiratory Rate 16 16 17 Blood Pressure 132/69 130/86 118/58 L Pulse Oximetry 94 L 100 95 09/09/18 10:00 09/09/18 12:00 09/09/18 16:00 Temperature 98.1 F 97.3 F L 98.7 F Pulse Rate 82 72 68 Respiratory Rate 18 16 16 Blood Pressure 120/63 112/60 118/62 Pulse Oximetry 99 95 95 09/09/18 20:00 09/10/18 00:00 09/10/18 04:00 Temperature 97.8 F 98.5 F 98.2 F Pulse Rate 87 85 71 Respiratory Rate 19 19 18 Blood Pressure 104/62 109/59 L 108/61 Pulse Oximetry 100 100 100 Intake & Output 09/09/18 09/09/18 09/10/18 06:59 18:59 06:59 Intake Total 2050 / 2050 680 / 680 Output Total 1125 / 1125 325 / 325 2950 / 2950 Balance -1125 / -1125 1725 / 1725 -2270 / -2270 Weight 84.7 kg 97.3 kg Intake: IV 1050 / 1050 NS Inj 1,000 ML @ 100 mls/hr IV 1000 / 1000 .CONT .Q10H [facility] Rx#:[id number] Ancef 1 GM Premix Inj 1 gm In 50 / 50 50 ml @ 100 mls/hr IV.SIG Q8H [facility] Rx#:[id number] Oral 680 / 680 Anesthesia Amount 1000 / 1000 Output: Urine 1650 / 1650 Estimated Blood Loss 25 / 25 Urine Amount (Catheter) 1125 / 1125 300 / 300 1300 / 1300 Indwelling Urethral Catheter 1125 / 1125 300 / 300 1300 / 1300 Other: Date of Last Bowel Movement 09/07/18 09/07/18 09/07/18 Weight On Admission 90.718 kg Narrative: Awake, alert, no acute distress Left lower extremity: Walking boot in place. Patient demonstrate positive EHL and FHL. Sensation intact. Brisk cap refill. Right lower extremity: Splint in place. Patient does wiggle big toe although with significant discomfort. Sensation appears intact. Brisk cap refill. - Urinary Catheter Management Indwelling Urethral Catheter Cath placed during this visit: yes Reason for continuing: Hourly intake/output Insertion date: 09/08/18 Insertion time: 21:30 Results - Labs CBC & Chem 7: 09/09/18 04:59 09/09/18 04:59 Laboratory Results - last 24 hr 09/09/18 09/09/18 04:59 04:59 WBC Differential . Diff Scan Auto diff confirmed Tear Drop Cells 1+ H Sodium 142 Potassium 4.0 Chloride 107 Carbon Dioxide 26.8 Anion Gap 8 BUN 11 Creatinine 0.80 Estimated GFR Greater than 89 Random Glucose 89 Calcium 8.5 Total Bilirubin 0.3 AST 19 ALT 32 Alkaline Phosphatase 79 Total Protein 7.4 Albumin 3.5 - Imaging Impressions Ankle X-Ray 09/09/18 00:00 CONCLUSION: Bimalleolar fixation as above. Assessment and Plan - Assessment and Plan 23-year-old female with closed right unstable bimalleolar ankle fracture and left ankle sprain, POD#1 s/p ORIF R ankle 1. Nonweightbearing right lower extremity in splint. Weightbearing as tolerated left lower extremity in boot. 2. Physical therapy for mobilization 3. Lovenox for DVT prophylaxis while inpatient. Would recommend switching to aspirin 325 mg twice daily upon discharge. 4. Patient may follow-up in my office in approximately 2 weeks. [place] Prescription Drug Monitoring Database has been queried and verified prior to prescribing the controlled substance. Acute pain exception: This patient has normal, predicted, physiological, and time limited response to an adverse mechanical stimulus associated with surgery , trauma, or acute illness as described in my notes. There is a lack of alternative treatment options other than to include the prescribed narcotic treatment for this condition.
[2018-09-10] MEDS: Senna/Docusate Sodium 8.6/50 MG Tablet PO SCH (08:06)
[2018-09-10] MEDS: Sod Chloride 0.9% Inj 1,000 ML IV.CONT SCH (08:35)
[2018-09-10] MEDS ORDERED: Multivitamin/Minerals Therapeutic Tablet PO SCH (09:00)
[2018-09-10] MEDS ORDERED: Ferrous Sulfate 325 MG Tablet PO SCH (09:00)
[2018-09-10 09:14] VITALS: RESP 16
[2018-09-10 12:24] VITALS: BP 114/99; PULSE 87; TEMP 97.7; O2SAT 99
--- NOTE | 2018-09-10 12:31 | P.DS ---
Date of admission: 09/08/18 19:13 Primary care physician: No Primary Care Physician Attending physician on discharge: Dominga Gallagher Anticipated date of discharge: 09/10/18 Brief History from admission: This is a 23-year-old female with no significant PMH who was brought to the ER after fall w/ complaints of bilateral ankle pain. Pt states she was at [facility] and was walking up a step w/ her daughter in her arms when, states she missed a step and while trying to protect her daughter, she fell and twisted both ankles. Notes pain is severe, 10/10, worse in right ankle, non-radiating, worse w/ movement. No LOC or head trauma. On arrival, BP 120/63, HR 118, O2 sat 98% on RA, Afebrile. WBC 13.1. Chemistry unremarkable. Left Ankle X-ray with anterolateral soft tissue swelling with tiny avulsion fracture, Right Ankle X-ray with mildly displaced fracture of medial malleolus, comminuted and mildly displaced angulated fracturing of distal shaft of right fibula. S/p splint in ER. Dr. Carvajal consulted, plan is for surgical intervention in am. Patient update on day of discharge: Patient seen and examined today. Reports she is doing well. She is waiting for physical therapy to get her out of bed she is waiting for her pain medication prior to physical therapy coming in earlier. States that case management has already spoken with her with regards to physical therapy at home. Patient states she is ready to go home. No acute issues overnight. DS: Diagnosis - Discharge Diagnosis (1) Ankle fracture, left Status: Acute (2) Ankle fracture, right Status: Acute DS: Medications - Discharge Medications Prescriptions: aspirin, buffered 325 mg PO BID #30 tab hydrocodone-acetaminophen 1 - 2 tab PO Q4H PRN #45 tab PRN Reason: Pain DS: Summary Hospital Course: 23-year-old female with no significant PMH who was brought to the ER after fall w/ complaints of bilateral ankle pain. Pt states she was at [facility] and was walking up a step w/ her daughter in her arms when, states she missed a step and while trying to protect her daughter, she fell and twisted both ankles. Status post ORIF of right bimalleolar ankle fracture 09/09/[address] Carvajal. Recommend nonweightbearing to right lower extremity. Weightbearing as tolerated to left lower extremity with boot in place. Patient will be transitioned to aspirin 325 mg twice daily from Lovenox as per orthopedic recommendation. No complications during hospitalization. Follow-up with Dr. Carvajal in 2 weeks as recommended. Follow-up with PCP. Patient has met maximal benefits of hospitalization. Clinically stable for discharge with home health physical therapy. - Time Spent with Patient Total time spent providing and/or coordinating discharge services: Less than 30 minutes - Quality: VTE Deep Vein Thrombosis/Pulmonary Embolism Present on Admission: No Exam Vital signs: Vital Signs 09/09/18 16:00 09/09/18 20:00 09/10/18 00:00 Temperature 98.7 F 97.8 F 98.5 F Pulse Rate 68 87 85 Respiratory Rate 16 19 17 Blood Pressure 118/62 104/62 109/59 L Pulse Oximetry 95 100 100 09/10/18 04:00 09/10/18 08:00 09/10/18 12:00 Temperature 98.2 F 97.9 F 97.7 F Pulse Rate 71 72 87 Respiratory Rate 18 16 16 Blood Pressure 108/61 111/57 L 114/99 H Pulse Oximetry 100 98 99 Intake & Output 09/09/18 09/10/18 09/10/18 18:59 06:59 18:59 Intake Total 3050 / 3050 730 / 730 Output Total 325 / 325 2950 / 2950 Balance 2725 / 2725 -2220 / -2220 Weight 97.3 kg Intake: IV 2049 / 2049 50 / 50 NS Inj 1,000 ML @ 100 mls/hr IV 1999 / 1999 .CONT .Q10H MARIBELL Rx#:[id number] Ancef 1 GM Premix Inj 1 gm In 50 / 50 50 / 50 50 ml @ 100 mls/hr IV.SIG Q8H MARIBELL Rx#:[id number] Oral 680 / 680 Anesthesia Amount 1000 / 1000 Output: Urine 1650 / 1650 Estimated Blood Loss 25 / 25 Urine Amount (Catheter) 300 / 300 1300 / 1300 Indwelling Urethral Catheter 300 / 300 1300 / 1300 Other: Date of Last Bowel Movement 09/07/18 09/07/18 Narrative: GENERAL: This is a well-nourished, well-developed patient, in no apparent distress. SKIN: Warm and dry. HEENT: Normocephalic. Pupils equal round and reactive. Nose without bleeding. Airway patent. NECK: Trachea midline. CARDIOVASCULAR: Regular rate and rhythm without murmurs, gallops, or rubs. RESPIRATORY: Clear to auscultation. Breath sounds equal bilaterally. No wheezes , rales, or rhonchi. GASTROINTESTINAL: Abdomen soft, non-tender, nondistended. Bowel Sounds normoactive x4. MUSCULOSKELETAL: Extremities without clubbing, cyanosis. High Boot, able to wiggle toes. Warm and dry. Right lower extremity with Herrera wrap, able to wiggle toes, warm and dry. Sensation for bilateral lower extremity is intact. NEUROLOGICAL: Awake and alert. Oriented to time, place, person. No focal neuro deficit. Normal speech. Results Procedures completed during hospitalization: Status post right bimalleolar ORIF, Dr. Mcgrath - Impressions ITS Impressions Ankle X-Ray 09/09/18 00:00 CONCLUSION: Bimalleolar fixation as above. Discharge Plan - Discharge Disposition Patient Disposition: /Home Health Service - Discharge Condition Condition: Stable - Discharge Order Discharge Orders: Orthopedic Clear for Discharge (Routine); Ordered 09/10/18 Ordered By: Sophia Carvajal - Physicians Team Primary Care Provider: Primary Care Mary,Amy Attending Provider: Dominga Gallagher Other Providers: Sophia Carvajal MD
== END 2018-09-10 15:37 | disposition home health service (06) ==
LOC: NEPC 16:08 → NEDA 19:13 → N06 20:40
PROVIDERS: ADMIT Hospitalist; ATTEND Hospitalist
PROC: ORIFANK (2018-09-09 07:47)